=== PATIENT | female | born 1960 | race Caucasian/White ===

== ENCOUNTER → 2021-10-18 | Day surgery (SDC) | payer OTHER | END | disposition home or self-care (01) | LOC: MSO 08:10 | DX: Z12.11 Encounter for screening for malignant neoplasm of colon (principal); Z86.010 Personal history of colon polyps | CPT/HCPCS: 00812; J2704; J7120 ==

== ENCOUNTER → 2023-06-29 | Outpatient (CLI) | payer OTHER | LOC: VAS 12:45 → RAD 13:00 | DX: R60.0 Localized edema (principal) ==